=== PATIENT | female | born 1980 | race Asian ===

== ENCOUNTER 2020-03-04 07:00 | Inpatient (IN) | payer OTHER ==
--- NOTE | 2020-03-04 07:39 | HP ---
Past Medical History - Primary Care Physician PCP:: Jb Salazar E - Admission Chief Complaint: Term . LGA. For induction. History Source: Patient, Caregiver Limitations to Obtaining History: No Limitations - Past Medical History [employer]: No: Alzheimer's, CVA, Dementia, Migraine, Multiple Sclerosis, Peripheral Neuropathy, Parkinson's, Seizure, Syncope, TIA, Vertigo, Other Cardiovascular: No: AFIB, Aneurysm, Aortic Insufficiency, Aortic Stenosis, CAD, CHF, Deep Vein Thrombosis, HTN, Hyperlipdemia, OK, Mitral Insufficiency, Mitral Stenosis, Murmur, Pulmonary Hypertension, Other Pulmonary: No: Asthma, Bronchitis, Cancer, COPD, O2 Dependent, Pneumonia, Previously Intubated, Pulmonary Embolus, Pulmonary Fibrosis, Sleep Apnea, Other Gastrointestinal: No: Ascites, Cancer, Constipation, Crohn's Disease, Diverticulitis, Diverticulosis, Esophageal Varices, Gastritis, GERD, GI Bleed, Hemorrhoids, Hiatal Hernia, Inflamatory Bowel Disease, Irritable Bowel Disease, Pancreatitis, Peptic Ulcer Disease, Ulcerative Colitis, Other Hepatobiliary: No: Cirrhosis, Cholelithiasis, Cholecystitis, Choledocholithiasis, Hepatitis A, Hepatitis B, Hepatitis C, Other Renal/: No: Renal Failure, Renal Inusuff, BPH, Cancer, Hematuria, Hemodialysis, Neurogenic Bladder, Renal Calculi, UTI, Other Reproductive: No: Ectopic , Endometriosis, Fibroids, PID, Polycystic Ovary Syndrome, Postmenopausal, Other ...Living Children: 2 ...EDC by Dates: 03/11/20 Heme/Onc: No: Anemia, B12 Deficiency, Bleeding Disorder, Cancer, Current Chemotherapy, Current Radiation Therapy, Hemochromatosis, Hypercoaguable State, Myeloproliferative Synd, Sickle Cell Disease, Sickle Cell Trait, Thrombocytopenia, Other Infectious Disease: No: AIDS, C-Diff, Herpes Zoster, HIV, MRSA, STD's, Tuberculosis, VREF, Other Psych: No: Addictions, Anxiety, Bipolar, Depression, Panic, Psychosis, Schizophrenia, Other Musculoskeletal: No: Bursitis, Chronic low back pain, Hemiparesis, Hemiplegia, Osteoarthritis, Paraplegia, Other Rheumatology: No: Fibromyalgia, Gout, Lupus, Rheumatoid Arthritis, Sarcoidosis, Vasculitis, Other ENT: No: Allergic Rhinitis, Sinusitis, Other Endocrine: No: [place]'s Disease, [place]'s Disease, Diabetes Insipidus, Di abetes Mellitus, Hyperparathyroidism, Hyperthyroidism, Hypothyroidism, Osteopenia, SIADH, Other - Past Surgical History Past Surgical History: No: None, AAA Repair, AICD, Amputation, Appendectomy, Arthrosocopy, AV Fistula/Graft, Bariatric Surgery, Breast Biopsy, Bypass, CABG, Carotid Endarterectomy, Cataract Removal, Cholecystectomy, Colectomy, Colonoscopy, Colostomy, Craniotomy, , Cystectomy, Hernia Repair, Hysterectomy, Ileal Conduit, Ileosotomy, Joint Replacement, Kidney Transplant, Laminectomy, Liver Transplant, Mastectomy, Nephrectomy, Oopherectomy, Orchiectomy, Permanent Pacemaker, Prostatectomy, Splenectomy, Stent, Thoracotomy, TURP, Tonsillectomy, Tubal Ligation, Upper Endoscopy, Valve Replacement, Vasectomy, Vein Stripping/Ligation Hx Myomectomy: No Hx Transabdominal Cerclage: No - Smoking History Smoking history: Never smoked - Social History Usual Living Arrangement: Yes: With Spouse Home Medications - Allergies Allergies/Adverse Reactions: Allergies Allergy/AdvReac Type Severity Reaction Status Date / Time iodine Allergy Hives Verified 03/04/20 07:52 pineapple Allergy Hives Verified 03/04/20 07:52 - Home Medications Home Medications: Ambulatory Orders Prenat 115/Iron Fum/Folic/Dss [ 19 Tablet] 1 tab PO DAILY 03/04/20 Review of Systems - Review of Systems Constitutional: reports: No Symptoms Eyes: reports: No Symptoms HENT: reports: No Symptoms Neck: reports: No Symptoms Cardiovascular: reports: No Symptoms Respiratory: reports: No Symptoms Gastrointestinal: reports: No Symptoms Genitourinary: reports: No Symptoms Breasts: reports: No Symptoms Reported Musculoskeletal: reports: No Symptoms Integumentary: reports: No Symptoms Neurological: reports: No Symptoms Endocrine: reports: No Symptoms Hematology/Lymphatic: reports: No Symptoms Psychiatric: reports: No Symptoms Physical Exam - Maternity Constitutional: Yes: Well Nourished, No Distress, Calm Eyes: Yes: WNL, Conjunctiva Clear, EOM Intact HENT: Yes: WNL, Atraumatic, Normocephalic Neck: Yes: WNL, Supple, Trachea Midline Cardiovascular: Yes: WNL, Regular Rate and Rhythm Breast(s): Yes: WNL - Abdominal Exam/OB Fundal Height: 40 Number of Fetuses: Single Presentation: Vertex Contractions: No Monitor Mode: External Heart Rate (range): 135 Heart Rate Location: [facility] Category: I Accelerations: Uniform Decelerations: None - Vaginal Exam/OB Vaginal Bleeding: No Dilatation (cm): 3 Effacement (%): 50 Amniotic Membrane Status: Intact Presentation: Vertex/Position Station: -1 - Physical Exam Musculoskeletal: Yes: WNL Extremities: Yes: WNL Integumentary: Yes: WNL ...Motor Strength: WNL Psychiatric: Yes: WNL Problem List - Problems (1) Term Code(s): Z34.90 - ENCNTR FOR SUPRVSN OF NORMAL , UNSP, UNSP TRIMESTER (2) LGA (large for gestational age) fetus Code(s): [id number] - Assessment/Plan Uneventful gestation. For induction today. Didcussed all pros and cons as well as risks and complications. Pt. understands and consents.
[2020-03-04 08:12] LABS: BASO % 0.5 % (0-2.0); EOS % 0.5 % (0-4.5); HEMATOCRIT 30.3 % (32.4-45.2); HEMOGLOBIN 10.2 GM/dL (10.7-15.3); LYMPH % 16.7 % (8-40); MCHC 33.7 g/dl (32.0-36.0); MEAN PLT VOLUME 8.5 fl (7.5-11.1); MONO % 6.5 % (3.8-10.2); NEUT % 75.8 % (42.8-82.8); PLATELET COUNT 417 K/MM3 (134-434); RBC 3.65 M/mm3 (3.60-5.2); RDW 14.5 % (11.6-15.6); WHITE BLOOD COUNT 9.9 K/mm3 (4.0-10.0)
[2020-03-04 08:14] VITALS: BMI 29.2
[2020-03-04] MEDS ORDERED: OXYTOCIN 30 UNITS in 0.9% NS 30 UNIT/500 ML INFUS.BAG IVPB SCH (08:15)
[2020-03-04 08:23] LABS: BLOOD UREA NITROGEN 10.1 mg/dL (7-18); CALCIUM 9.2 mg/dL (8.5-10.1); CREATININE 0.5 mg/dL (0.55-1.3); POTASSIUM 3.5 mmol/L (3.5-5.1)
[2020-03-04 08:24] LABS: INR 0.92 (0.83-1.09); PROTHROMBIN TIME (PATIENT) 10.8 SEC (9.7-13.0)
[2020-03-04 08:27] LABS: ACTIVATED PTT 27.1 SECONDS (25.2-36.5)
[2020-03-04] MEDS: ELECTROLYTE-148 SOLN 1,000 ML IV SCH ×2 (08:45→13:30)
--- NOTE | 2020-03-04 12:15 | PN ---
Progress Note, Labor Vaginal Exam #1 Labor Exam Date: 03/04/20 Labor Exam Time: 12:05 Heart Rate (range): 135 Dilatation: 3-4 Effacement (%): 70 Amniotic Membrane Status: Intact Presentation: Vertex/Position Station: -1 (Pitocin started at 09:50 hrs. AROM w this exam; clear.)
[2020-03-04] MEDS ORDERED: FENTANYL/BUPIVACAINE/NS/PF - PCEA - 50 ML DISP.SYRIN EP ONE (13:17)
[2020-03-04] MEDS ORDERED: PCA PUMP NR ONE (13:17)
[2020-03-04] MEDS ORDERED: BUPIVACAINE HCL/PF 0.25% (2.5MG/ML) 10 ML VIAL ONE ×2 (13:32→14:24)
[2020-03-04] MEDS ORDERED: NALOXONE HCL 0.4 MG/ML VIAL IVPUSH PRN (14:50)
[2020-03-04] MEDS ORDERED: OXYTOCIN 20 UNITS in 0.9% NS 20 UNIT/1,000 ML INFUS.BAG IV ONE (14:55)
[2020-03-04] MEDS ORDERED: FENTANYL/BUPIVACAINE/NS/PF - PCEA - 50 ML DISP.SYRIN EP SCH (15:00)
--- NOTE | 2020-03-04 15:30 | PN ---
Progress Note, Labor Vaginal Exam #3 Labor Exam Date: 03/04/20 Labor Exam Time: 15:05 Dilatation: 10 Presentation: Vertex/Position Station: -1 (Epidural in place; turned off. Pushing.)
--- NOTE | 2020-03-04 16:13 | PN ---
Delivery - Delivery Vaginal Delivery: Spontaneous Type of Anesthesia: Epidural Episiotomy/Laceration: None, 1st degree EBL (cc): 250 Delivery, Single - Condition of Infant Gender: Male Position: Left, OA - 1 Minute Total Score: 9 5 Minutes Total Score: 9 - Arley Feeding Plan Initial Plan: Elected not to breastfeed exclusively throughout hospitalization Remarks - Remarks Remarks: Uneventful delivery. Tiny laceration. Parents are very happy.
[2020-03-04] MEDS ORDERED: WITCH HAZEL 50% (TUCKS) 40 PAD/JAR PAD TP PRN (16:57)
[2020-03-04] MEDS ORDERED: BENZOCAINE 28 GM HEMORRHOIDAL OINTMENT TP PRN (16:57)
[2020-03-04] MEDS ORDERED: BISACODYL 10 MG SUPP.RECT RC PRN (16:57)
[2020-03-04] MEDS ORDERED: BENZOCAINE 20% 57 GM BOTTLE TP PRN (16:57)
[2020-03-04] MEDS ORDERED: METHYLERGONOVINE MALEATE 0.2 MG/1 ML AMP IM PRN (16:57)
[2020-03-04] MEDS ORDERED: OXYTOCIN 20 UNITS in 0.9% NS 1000 ML INFUS.BAG IV ONE ×2 (16:58→18:20)
[2020-03-04] MEDS: IBUPROFEN 600 MG TABLET (FP) PO PRN (18:07)
[2020-03-04] MEDS ORDERED: IBUPROFEN 600 MG TABLET (FP) PO ONE (18:09)
[2020-03-04] MEDS ORDERED: ELECTROLYTE-148 SOLN 1,000 ML IV SCH (18:30)
[2020-03-04] MEDS ORDERED: OXYTOCIN 20 UNITS in 0.9% NS 20 UNIT/1,000 ML INFUS.BAG IV SCH (18:45)
[2020-03-04] MEDS: ACETAMINOPHEN 325 MG TABLET (FP) PO PRN (20:21)
[2020-03-04] MEDS ORDERED: METHYLERGONOVINE MALEATE 0.2 MG/1 ML AMP IM ONE (22:30)
[2020-03-04] MEDS ORDERED: ACETAMINOPHEN 1000 MG/100 ML VIAL (NON FORMULARY) IVPB ONE (22:45)
[2020-03-04] MEDS: oxyCODONE HCL 5 MG TABLET PO PRN (22:57)
[2020-03-05] MEDS: IBUPROFEN 600 MG TABLET (FP) PO PRN ×4 (06:04→22:08)
[2020-03-05] MEDS: oxyCODONE HCL 5 MG TABLET PO PRN ×4 (06:05→22:09)
[2020-03-05 08:26] LABS: BASO % 0.5 % (0-2.0); EOS % 0.3 % (0-4.5); HEMATOCRIT 32.1 % (32.4-45.2); HEMOGLOBIN 10.4 GM/dL (10.7-15.3); LYMPH % 9.5 % (8-40); MCH 27.8 pg (25.7-33.7); MCHC 32.3 g/dl (32.0-36.0); MONO % 5.6 % (3.8-10.2); NEUT % 84.1 % (42.8-82.8); PLATELET COUNT 382 K/MM3 (134-434); RBC 3.73 M/mm3 (3.60-5.2); RDW 14.7 % (11.6-15.6); WHITE BLOOD COUNT 15.9 K/mm3 (4.0-10.0)
--- NOTE | 2020-03-05 08:59 | PN ---
Progress Note (short form) - Note Progress Note: PP # 1. Feels well. Uterus firm. No CVA, extremities T. I/P: Doing well. Circ. discussed. Pt. wants to have it done. Problem List - Problems (1) Term Code(s): Z34.90 - ENCNTR FOR SUPRVSN OF NORMAL , UNSP, UNSP TRIMESTER (2) LGA (large for gestational age) fetus Code(s): [id number] -
[2020-03-05] MEDS: ACETAMINOPHEN 325 MG TABLET (FP) PO PRN (16:12)
[2020-03-05] MEDS ORDERED: SENNOSIDES/DOCUSATE COMBO (SENNA PLUS) TABLET (UD) PO PRN (22:00)
[2020-03-06] MEDS ORDERED: ACETAMINOPHEN 1000 MG/100 ML VIAL (NON FORMULARY) IVPB PRN (01:22)
[2020-03-06 11:23] VITALS: BP 101/68; PULSE 91; TEMP 98
--- NOTE | 2020-03-06 12:16 | PN ---
Progress Note (short form) - Note Progress Note: PP#2. Feels great. Pain is better. PE WNL. Instructed. Discharge. Problem List - Problems (1) Term Code(s): Z34.90 - ENCNTR FOR SUPRVSN OF NORMAL , UNSP, UNSP TRIMESTER (2) LGA (large for gestational age) fetus Code(s): [id number] -
== END 2020-03-06 13:30 | disposition home or self-care (01) | DRG 807 ==
LOC: JLDR 07:00 → J3W 19:51
PROVIDERS: ADMIT Specialist; ATTEND Specialist
PROC: 10E0XZZ Delivery of Products of Conception, External Approach (ICD-10-PCS; principal; 2020-03-04)
PROC: 0HQ9XZZ Repair Perineum Skin, External Approach (ICD-10-PCS; 2020-03-04)
PROC: 0W8NXZZ Division of Female Perineum, External Approach (ICD-10-PCS; 2020-03-04)
DX: O70.0 First degree perineal laceration during delivery (principal); Z37.0 Single live birth; O36.63X0 Maternal care for excessive fetal growth, third trimester, not applicable or unspecified; Z3A.39 39 weeks gestation of pregnancy
CPT/HCPCS: 36415; 59409; 80048; 85025; 85610; 85730; 86780; 86850; 86900; 86901; J0131; U0003